=== PATIENT | male | born 1950 | race Caucasian/White ===

== ENCOUNTER → 2017-05-10 | Outpatient (CLI) | payer MEDICARE, OTHER ==
[~2017-05-10] MED LIST: ACCUNEB SO1.25 MG/1 INH; DIGOXIN250 MCG PO; FLOMAX0.4 MG PO; LIPITOR80 MG PO; LISINOPRIL10 MG PO; LODINE400 M1 PO; PROSCAR 5MG TABL5 MG PO; RETIN-A15 GM TOP; SORINE 80 MG TA80 M1 PO; SOTALOL160 MG PO; SPIRIVA INH; XARELTO20 MG PO
--- NOTE | 2017-05-14 06:54 | SLEEP ---
[address] [address] SLEEP STUDY REPORT Name: MINNIE WHITTINGTON Room: [facility]#: [id number] Admission: 05/10/17 Attend Phys: Minnie Powers MD Discharge: Date of : 54 Report #: [id number] THIS REPORT FOR: //name// CC: Janiya Miranda This study has been reviewed in its entirety by a board certified sleep specialist DATE OF SERVICE: 05/10/2017 REQUESTING PHYSICIAN: Minnie Powers MD Polysomnography was performed. Study was done do a history of atrial fibrillation. Weight is 235 pounds with a BMI of 38. [place]eland sleepiness scale was only 2/24. He does have difficulty sleeping through the night. Delayed onset of sleep, frequent urination throughout the night, does snore. Total study time was 440 minutes. Total sleep time 232 minutes. Sleep efficiency decreased to 53%. 8.4% of time was spent in REM sleep. During the study, there were 2 central and 2 obstructive apneas noted. Nine hypopneas were noted. This resulted in apnea-hypopnea index of 3.4. There were 483 periodic limb movements noted. 41 associated with an arousal. This resulted in a PLMS arousal index of 10.6. Heart rate average 99 beats per minute. However, he did have high heart rate of 142 beats per minute. The patient slept in both the supine and lateral positions. O2 saturations while sleeping remained greater than 90%. IMPRESSION: 1. No evidence of significant obstructive sleep apnea. Apnea-hypopnea index of only 3.4. However, he did have decreased REM sleep, which could underestimate this. 2. Elevated periodic limb movements noted. Increased arousal index of 10.6. 3. Elevated body mass index. RECOMMENDATIONS: 1. Could consider treating periodic limb movement disorder. 2. Achieving and maintaining ideal body weight. <ELECTRONICALLY SIGNED> By: Kathia Griffiths MD 05/14/17 0654 [id number] Griffiths MD /nt
== END ==
LOC: M.SLEEPLAB 01:51
DX: G47.33 Obstructive sleep apnea (adult) (pediatric) (principal); R40.0 Somnolence; R35.0 Frequency of micturition; Z86.79 Personal history of other diseases of the circulatory system

== ENCOUNTER → 2017-05-31 | Outpatient (CLI) | payer MEDICARE, OTHER ==
[2017-05-31] VITALS (9 sets, daily range): BP systolic 73–158; BP diastolic 39–132
--- NOTE | 2017-05-31 15:47 | EKG ---
[place] [address] ELECTROCARDIOGRAM REPORT Name: MINNIE WHITTINGTON Room: [facility]#: [id number] Admission: 05/31/17 Attend Phys: Minnie Powers MD Discharge: Date of : 54 Report #: [id number] THIS REPORT FOR: //name// [facility] Test Date: 2017-05-31 Test Time: 09:57:49 Pat Name: MINNIE WHITTINGTON Department: Room: Gender: M Screen Examiner: : 1950 Requested By: Minnie Powers Order Number: [id number] Reading MD: Minnie Powers Measurements Intervals [place] Rate: 109 P: MT: QRS: 11 QRSD: 84 T: 90 QT: 389 QTc: 525 Interpretive Statements Atrial fibrillation Paired ventricular premature complexes Nonspecific T abnrm, anterolateral leads Prolonged QT interval Compared to ECG 04/23/2017 08:36:25 Ventricular premature complex(es) now present Prolonged QT interval now present Sinus rhythm no longer present Electronically Signed On 05-31-2017 15:47:45 PHOTO JOURNALIST by Minnie Powers [email or web address] <ELECTRONICALLY SIGNED> By: Minnie Powers MD, FACC 05/31/17 1547 [id number] [id number] Minnie Powers MD, FACC /EPI
--- NOTE | 2017-06-16 17:12 | CARD ---
[address] [address] CARDIAC CATH REPORT Name: MINNIE WHITTINGTON Room: [facility]#: [id number] Admission: 05/31/17 Attend Phys: Minnie Powers MD Discharge: Date of : 54 Report #: [id number] THIS REPORT FOR: //name// CC: Prasanna Powers PROCEDURE: DC cardioversion. INDICATION: Persistent atrial fibrillation. PROCEDURE DESCRIPTION: After informed consent was obtained, the patient was brought to the cardiac holding area. The patient was given intravenous Versed and fentanyl for conscious sedation. Once the patient was adequately sedated, he was cardioverted to normal sinus rhythm with a single biphasic shock of 360 joules. The patient tolerated the procedure well without complication. He was discharged in stable condition. IMPRESSION: 1. Persistent atrial fibrillation. 2. Successful direct current cardioversion to normal sinus rhythm. <ELECTRONICALLY SIGNED> By: Minnie Powers MD, FACC 06/16/17 1712 1546 1819[facility] Powers MD, FAC /nt
== END | disposition home or self-care (01) ==
LOC: M.CL 08:42
DX: I48.1 Persistent atrial fibrillation (principal)

== ENCOUNTER → 2018-02-07 | Outpatient (CLI) | payer MEDICARE, OTHER ==
[2018-02-07] VITALS (9 sets, daily range): BP systolic 92–123; BP diastolic 68–85
--- NOTE | 2018-02-07 11:36 | TEE ---
[place] [address] TRANSESOPHAGEAL ECHOCARDIOGRAM Name: MINNIE WHITTINGTON Room: [facility]#: [id number] Admission: 02/07/18 Attend Phys: Minnie Powers, Discharge: Date of : 54 Date of Service: 02/07/18 1136 Report #: [id number] THIS REPORT FOR: //name// APPROVED REPORT Study performed: 02/07/2018 09:27:28 EXAM: Transesophageal Echocardiogram Patient Location: Out-Patient Status: routine BSA: 2.15 HR: 84 bpm BP: 101/71 mmHg Rhythm: Atrial Fibrillation Other Information Study Quality: Good Indications Atrial Fibrillation pre-ablation Echo Enhancing Agent Indication: Rule out Shunt Agent(s) / Amount(s) Used: Agitated Saline 10 cc Procedure After obtaining informed consent, patient underwent transesophageal echo in the [facility]. Type of Sedation : Conscious Sedation Sedation was administered by Christine Flor. Sedation start time: 931 Case end Time: 944 Sedation was achieved intravenously with: Versed (3) Fentanyl (75) Transesophageal probe was inserted and advanced into esophagus without difficulty by Minnie Powers MD, FACC. Echo enhancement indication: R/O Septal defect. Echo enhancement agent administered: Agitated Saline The KALPESH was performed without complications. Throughout the procedure, the blood pressure, pulse oximetry, cardiac rhythm, and rate were monitored. The patient tolerated the procedure without adverse effects. Recovery from conscious sedation was uneventful and vital [place] [address] TRANSESOPHAGEAL ECHOCARDIOGRAM Name: MINNIE WHITTINGTON Room: [facility]#: [id number] Admission: 02/07/18 Attend Phys: Minnie Powers, Discharge: Date of : 54 Date of Service: 02/07/18 1136 Report #: [id number] Left Ventricle The left ventricle is normal size. There is normal LV segmental wall motion. There is normal left ventricular wall thickness. Left ventricular systolic function is normal. LVEF is 50-55%. Right Ventricle The right ventricle is normal size. The right ventricular systolic function is normal. Atria No thrombus is visualized in the left atrium or appendage. Interatrial septum is intact without evidence of ASD or PFO. The right atrium size is normal. Aortic Valve The aortic valve is normal in structure. No aortic regurgitation is present. There is no aortic valvular stenosis. Mitral Valve The mitral valve is normal in structure. Trace mitral regurgitation. No evidence of mitral valve stenosis. Tricuspid Valve The tricuspid valve is normal in structure. There is no tricuspid valve regurgitation noted. Pulmonic Valve The pulmonary valve is normal in structure. There is no pulmonic valvular regurgitation. Great Vessels The aortic root is normal in size. Pericardium There is no pericardial effusion. <Conclusion> The left ventricle is normal size. There is normal left ventricular wall thickness. Left ventricular systolic function is normal. LVEF is 50-55%. No thrombus is visualized in the left atrium or appendage. [address] [address] TRANSESOPHAGEAL ECHOCARDIOGRAM Name: MINNIE WHITTINGTON Room: [facility]#: [id number] Admission: 02/07/18 Attend Phys: Minnie Powers, Discharge: Date of : 54 Date of Service: 02/07/18 1136 Report #: [id number] Interatrial septum is intact without evidence of ASD or PFO. Trace mitral regurgitation. <ELECTRONICALLY SIGNED> By: Minnie Powers MD, FACC 02/07/18 1136 35 35 Minnie Powers MD, FACC /INF
== END | disposition home or self-care (01) ==
LOC: M.CL 08:38
DX: I48.91 Unspecified atrial fibrillation (principal); Z79.899 Other long term (current) drug therapy; Z79.01 Long term (current) use of anticoagulants